=== PATIENT | male | born 1950 | race Asian ===

== ENCOUNTER 2016-05-15 08:41 | Day surgery (SDC) | payer MEDICARE, OTHER ==
[~2016-05-15] VITALS: Ht 167.6 cm; Wt 59.8 kg
[~2016-05-15 08:41] MED LIST: ASPI-664 PO; ATOR80TA75 PO; CARV3.1260 PO; GABA300S PO; LOSA25TA5 PO; OMEP-28 PO
[2016-05-15 09:26] VITALS: Ht 167.6 cm; Wt 59.8 kg
[2016-05-15 09:50] VITALS: BP 146/78; PULSE 51; RESP 18
[2016-05-15] MEDS ORDERED: PROPOFOL 40 ML ONE (10:17)
[2016-05-15] MEDS ORDERED: PROPOFOL 20 ML ONE (10:18)
[2016-05-15 10:25] VITALS: BP 136/82; RESP 18
[2016-05-15 11:20] VITALS: BP 133/75; RESP 18
--- NOTE | 2016-05-16 07:15 | GILP ---
DATE OF PROCEDURE: 05/15/2016 NAME OF PROCEDURE: Colonoscopy and hot biopsy of the anorectal wall rectal polyp. PREOPERATIVE DIAGNOSIS: The patient has a wart in the anorectal area. This needs to be excised. POSTOPERATIVE DIAGNOSES: This polyp was removed by using the hot biopsy forceps. DESCRIPTION OF PROCEDURE: After the informed written consent was obtained, the patient was asked to lie on the left lateral side. Intravenous anesthesia was given by anesthesiologist, Dr. De Leon. When the patient became somnolent, the Olympus video colonoscope was introduced into the rectum and adva nced all the way to the hepatic flexure. At the anorectal area, there was evidence of about 6 mm el ongated polyp noted. This is biopsy proven as a wart. At this time, I used the hot biopsy forceps, and this lesion was removed in piecemeal. External hemorrhoids were noted and the procedure was te rminated. PLAN: Recommend wait for the pathology report. Dictated By: RAMSEY REYNOLDS/HANG Conf#: [id number] DID#: [id number] CC: ____ Habib;*EndCC*
== END 2016-05-15 15:31 | disposition home or self-care (01) ==
LOC: GIL 08:41
PROVIDERS: ATTEND Internal Medicine Gastroenterology
DX: K62.1 Rectal polyp (principal); K64.4 Residual hemorrhoidal skin tags; I10 Essential (primary) hypertension; I25.10 Atherosclerotic heart disease of native coronary artery without angina pectoris
CPT/HCPCS: 88305